=== PATIENT | female | born 1975 | race Caucasian/White ===

== ENCOUNTER 2020-02-18 08:31 | Outpatient (CLI) | payer SELFPAY ==
--- NOTE | 2020-02-18 | DI.US_ITS ---
EXAM: US PELVIS CLINICAL HISTORY: PELVIC PAIN, ? OVARIAN TORSION OR ECTOPIC . TECHNIQUE: Transabdominal pelvic ultrasound was performed using standard protocol. COMPARISON: No exams were available for comparison FINDINGS: The uterus is normal in size. The endometrial stripe is within normal limits. There is no evidence of an intrauterine gestation. The ovaries were not visualized transabdominally. There is fluid seen in the abdomen and pelvis. There is avascular echogenic material in the left abdomen and pelvis. T he finding is suspicious for hemorrhage. IMPRESSION: 1. Transabdominal examination of the pelvis. 2. No evidence of an intrauterine gestation. 3. Avascular echogenic material seen in the left abdomen and pelvis suspicious for hemorrhage. Diffe rential considerations include hemorrhagic ovarian cyst, ovarian torsion or possible ectopic pregnanc y. Follow-up with beta HCG level is recommended. 4. The ovaries were not visualized transabdominally. 5. The findings were discussed with the patient's primary care provider Haleigh Wu on the date o f the examination. DATA REPOSITORY:
[2020-02-18 09:52] LABS: HCT 30.8 % (36.0-46.0); HGB 10.4 g/dL (12.0-15.5); Mean Corp. HGB Concentration 33.8 g/dL (32.0-36.0); Mean Corpuscular Hemoglobin 29.1 pg (27.0-33.0); Mean Corpuscular Volume 86.3 fL (80-95); Mean Platelet Volume 10.8 fL (8.0-11.0); Platelet Count 245 x1000/uL (130-400); RBC 3.57 m/cumm (4.00-5.20); RBC Distribution Width 12.5 % (11.7-14.6); White Blood Cell Count 14.85 k/cumm (4.4-10.8)
[2020-02-18 09:58] LABS: HCG Qual (Serum) Negative
[2020-02-18 10:09] LABS: ALT 21 U/L (14-59); AST 16 U/L (15-37); Albumin 3.5 g/dL (3.4-5.0); Alkaline Phosphatase 41 U/L (46-116); Anion Gap 11.9 mmol/L (3-11); BUN 22 mg/dL (7-18); Bilirubin, Total 1.3 mg/dL (0.2-1.0); CO2 25.1 mmol/L (21.0-32.0); CREATININE 1.46 mg/dL (0.55-1.02); Calcium 8.6 mg/dL (8.5-10.1); Chloride 102 mmol/L (98-107); Estimated GFR 38.92 (mL/min/1.73m2); Glucose 181 mg/dL (74-106); Potassium 3.5 mmol/L (3.5-5.1); Sodium 139 mmol/L (136-145); Total Protein 6.9 g/dL (6.4-8.2)
[2020-02-18 10:10] LABS: HCG Quant, Pregnancy < 1 mIU/mL (1-3)
== END 2020-02-18 08:51 ==
PROVIDERS: PCP Naturopath; Visit Provider Naturopath
DX: R10.2 Pelvic and perineal pain (principal); R93.89 Abnormal findings on diagnostic imaging of other specified body structures
CPT/HCPCS: 36415; 80053; 85027; 76856; 84702; 84703

== ENCOUNTER 2020-02-18 11:04 | Inpatient (IN) | payer SELFPAY ==
[2020-02-18] VITALS (88 sets, daily range): BP systolic 101–135; BP diastolic 57–70; PULSE 63–86; RESP 13–22; TEMP 36.3–39.9; O2SAT 94–99
--- NOTE | 2020-02-18 | DI.CT_ITS ---
EXAM: CT ABDOMEN PELVIS CTA CLINICAL HISTORY: LARGE RETROPERITONEAL HEMATOMA. TECHNIQUE: Imaging Protocol: Axial CT angiography was performed with multislice acquisition and mu ltiplanar and/or 3D reconstructions. CONTRAST MATERIAL: Intravenous: Omnipaque 350 Contrast volume:70 mL Oral: No COMPARISON: US US PELVIS from 02/18/2020 FINDINGS: Vascular Structures: Celiac [place]/SMA: No evidence of stenosis. Renal Arteries: No evidence of stenosis. There is a single renal artery perfusing each kidney. Aorta: No aneurysm. No dissection. Pelvis: Iliac Arteries: No evidence of stenosis or dissection. Common Femoral Arteries: No evidence of stenosis. Soft Tissues: Lung bases:Normal. Liver: Normal density. No measurable mass. Gallbladder and biliary tract: Cholelithiasis. No biliary ductal dilatation. Pancreas: Normal density, no abnormal calcifications or inflammatory process. Spleen: Normal. Kidneys: The right kidney is unremarkable. There is delayed enhancement of the left kidney with dila tation of the left renal collecting system into the pelvis. No nephrolithiasis. No masses seen. Adrenal glands: No masses seen. Bladder: There is a Easton catheter in place. Air is seen within the urinary bladder, likely secondar y to introduction of the Easton catheter. Bowel: No obstruction or bowel wall thickening. No evidence of acute appendicitis. Peritoneal cavity: There is a large left retroperitoneal hematoma beginning below the level of the re nal arteries extending into the pelvis. No active extravasation is noted. It displaces the sigmoid colon, uterus and urinary bladder to the right. It is superficial to the external iliac vessels. It causes obstruction of the distal left ureter near the ureterovesical junction. There is moderate di latation of the left renal collecting system and delayed enhancement of the left kidney. In addition , there is a small amount of fluid in the cul-de-sac. There is a small amount of pneumoperitoneum in addition to subcutaneous air in the anterior abdominal wall, likely secondary to the patient's surge ry performed today prior to the CT scan. Bones: No acute fracture is identified. Lymph nodes: Within normal limits. Reproductive organs: Unremarkable. Soft tissues: There are bilateral inguinal hernias containing fluid. IMPRESSION: 1. Large retroperitoneal mass on the left suspicious for a hematoma. No evidence of active extravasa tion. 2. The hematoma obstructs the distal left ureter causing moderate hydronephrosis and delayed enhancem ent of the left kidney. 3. There is displacement of pelvic structures to the right. 4. There is a small amount of free fluid in the cul-de-sac and fluid-containing bilateral inguinal he rnias. 5. Small amount of pneumoperitoneum likely secondary to the patient's surgery today. 6. Cholelithiasis. No biliary ductal dilatation. 7. No evidence of acute arterial injury. 8. These findings were discussed with the primary care physician on the date of the examination. RADIATION DOSE DELIVERED: 1,514mGy.cm Total DLP DATA REPOSITORY: All CT scans at this facility are submitted to the National Radiology Data Registry (NRDR) Dose Index Registry (DIR) with the [employer] (ACR). RADIATION OPTIMIZATION: All CT scans at this facility use at least one of these dose optimization te chniques: automated exposure control; mA and/or kV adjustment per patient size (includes targeted exa ms where dose is matched to clinical indication); or iterative reconstruction.
--- NOTE | 2020-02-18 11:10 | W.ED.GENAD ---
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 Date/Time: 02/18/20 13:54 Admit Provider: Mandie Saldana Attending Provider: Rachell Shaikh Primary Care Provider: Haleigh Wu ED Provider: Bir Honeycutt Discharge Instructions Activity:: Activity as Tolerated Diet:: NPO Discharge Orders Discharge Orders: Discharge Order (Routine); Ordered 02/18/20 Ordered By: Alxesandra Leonard Discharge Data Discharge Date/Time-TO BE ENTERED AT DEPARTURE: 02/18/20 12:00 Medical Decision Making Samia Patino is a 44-year-old woman without reported history of major medical problems who presented to the emergency department with generalized abdominal pain after having an outpatient ultrasound here at [facility] showing significant amount of blood in the pelvis. On exam patient appears fatigued but nontoxic, does not appear in distress. She is alert and oriented. Generalized abdominal tenderness to palpation, positive rebound, positive guarding. Labs performed this morning show beta quant less than 1, hemoglobin 10. Concern for hemorrhage secondary to ruptured cyst versus other. Gynecology was notified by radiology and Dr. Shaikh was at bedside with patient when she was brought to the emergency department. Plan for patient to go emergently to the OR. Will place IVx2, repeat H&H, send type and screen as labs sent as outpatient this morning. Patient requesting no blood if possible, will give IV fluids at this time and hold blood products. Patient's vital signs remained within normal, systolic blood pressure 106. Pt admitted and left for OR, no change in symptoms, no further incident. Clinical Impression: pelvic hemorrhage Disposition: [facility] in Medical Records Medical records reviewed: Yes I reviewed the patient's medical records. Lab Data Lab results reviewed: Yes I reviewed the patient's lab results. HPI General Mode of arrival: wheelchair. Date/Time Provider Initiated Documentation: 02/18/20 11:06. Limitations to Documentation: no limitations. Information obtained by: patient, RN notes reviewed and old records reviewed. HPI Narrative: Samia Patino is a 44 y/o woman without reported history of major medical problems presenting to the emergency department with abnormal outpatient ultrasound. Patient reports that yesterday she developed sudden left lower quadrant pain, had several episodes of vomiting. Patient reports that pain is now generalized to her abdomen. She reports feeling somewhat fatigued. Patient had ultrasound ordered as an outpatient for pain this morning as well as labs. I was called from radiology by Dr. Philip, who noted that patient had a significant amount of blood on her ultrasound, uterus empty, bilateral adnexa not well visualized. Patient taken emergently from radiology to the emergency department. Patient denies any other pain, fever, cough, shortness of breath, current nausea/vomiting, rash, numbness, localized weakness. Patient reports that she was previously in her usual state of health. No trauma. Related Data Home Medications Medication Instructions Recorded Confirmed Unknown [No Known Home Meds] 02/18/20 02/18/20 Allergies Allergy/AdvReac Type Severity Reaction Status Date / Time No Known Allergies Allergy Unverified 02/18/20 11:13 Review of Systems Narrative: Constitutional: denies fevers Eyes: denies eye pain ENT: denies ear pain, dental pain, sore throat Cardiovascular: denies chest pain Respiratory: denies SOB, cough GI: reports abdominal pain, vomiting, denies diarrhea : denies flank pain MSK: denies back pain, neck pain, arthralgias, myalgias Skin: denies rash Neuro: denies headaches, numbness, weakness PFS Medical History Anemia (Chronic) Elevated serum creatinine (Acute) Hemoperitoneum (Acute) Social History Smoking/Tobacco Use Status: Never Alcohol Intake: never Substance use type: does not use Household members: family Housing: house Number of Children: 9 History History Para Hx # Term Pregnancies 10 Multiple births Hx # Pregnancies Ectopic pregnancies AB induced Hx Number of Living Children 9 AB spontaneous 3 Exam Narrative Exam Narrative: Constitutional: pale, [id number], pleasant, conversing normally HENT: head atraumatic/normocephalic/normal inspection, mucous membranes moist Eyes: conjunctiva normal, sclera normal, pupils 3mm b/l Neck: no stridor, normal ROM, trachea midline Chest: normal inspection Resp: normal work of breathing, LCTAB Cardio: normal rate, normal rhythm, no murmur appreciated GI: abdomen soft, diffusely tender, + rebound, + guarding, non-distended Skin: warm, dry, normal color, no rash Neuro: alert, not altered, grossly non-focal, normal tone Ext: no edema Psych: normal mood, normal affect, normal behavior Critical Care Time Critical Care Time Total Critical Care Time: 35 Attestation: I have spent 35 minute of critical care time with this critically ill patient, including frequent reassessments and discussions with consultants.
[2020-02-18] MEDS: Normal Saline 1,000 ML 1000 ML IV (11:20)
[2020-02-18] MEDS: Normal Saline Flush 10 ML SYR IVP (11:24)
--- NOTE | 2020-02-18 11:43 | W.PM.HP.N ---
Date of service: 02/18/20 Time of Service: 11:43 Assessment and Plan Assessment and plan (1) Hemoperitoneum: Status: Acute Assessment and plan: Patient presented to the emergency department with onset of left lower quadrant pain. Ultrasound confirmed hemoperitoneum with fluid in the left paracolic gutter. This is highly suspicious for hemoperitoneum. Starting hemoglobin is 10. Repeat is pending. She will be taken the operating room emergently for diagnostic possible operative laparoscopy for removal and control of pelvic hemorrhage. Risks benefits and alternatives of procedure were explained to the patient fluting risk of infection, bleeding, injury to surrounding organs, risk of anesthesia, thromboembolic issues, . Full informed consent was obtained. She would accept blood if needed. (2) Anemia: Status: Chronic (3) Elevated serum creatinine: Status: Acute History of Present Illness History of Present Illness Chief Complaint: Acute abdominal pain, pelvic hemorhage Consults Consult date: 02/18/20 Requesting physician: Bri Honeycutt Review of Systems Narrative: Patient presented to the emergency department with acute onset of left lower quadrant pain. She states that over the past 24 hours she is feeling somewhat poorly and having fatigue. Her last normal period was in October with some subsequent spotting. She denies heavy vaginal bleeding. She denies concern of at this point. Her appetite yesterday was somewhat poor. She has no fevers or chills. She denies cough or shortness of breath. She states that she has been drinking plenty of fluids though her urine has been concentrated. Constitutional Constitutional: Reports as per HPI Cardiovascular Cardiovascular: Denies chest pain at rest, Denies chest pain with activity, Denies syncope and Denies dyspnea Comments: Dizziness with ambulation Respiratory Respiratory: Reports system reviewed and no additional complaints, except as documented and Denies dyspnea Gastrointestinal Gastrointestinal: Reports system reviewed and no additional complaints, except as documented Genitourinary Genitourinary: Reports abnormal menses and Reports abnormal vaginal bleeding Comments: She is 5 months and currently breast-feeding Musculoskeletal Musculoskeletal: Reports system reviewed and no additional complaints, except as documented Neurologic Neurologic: Reports system reviewed and no additional complaints, except as documented and Denies syncope Psychiatric Psychiatric: Reports system reviewed and no additional complaints, except as documented Hematologic/Lymphatic Hematologic/Lymphatic: Reports system reviewed and no additional complaints, except as documented [facility] Social History Smoking/Tobacco Use Status: Never Alcohol Intake: never Substance use type: does not use Female Reproductive History Menstrual Duration of menses: 3-5 days control method: none History History Para Hx # Term Pregnancies 10 Multiple births Hx # Pregnancies Ectopic pregnancies AB induced Hx Number of Living Children 9 AB spontaneous 3 Meds Home Medications and Allergies Home Medications Medication Instructions Recorded Confirmed Type Unknown [No Known Home Meds] 02/18/20 02/18/20 History Allergies Allergy/AdvReac Type Severity Reaction Status Date / Time No Known Allergies Allergy Unverified 02/18/20 11:13 Exam Narrative Exam Narrative: Patient was seen and examined in the emergency department today after having pelvic ultrasound performed showing a left paracolic gutter full of fluid consistent with hemorrhage. Uterus identified and normal. Difficulty in visualizing either ovary. Quantitative hCG less than 1 Const General: cooperative, well groomed, ill appearing and other (Pale) Nutritional Appearance: average body habitus Orientation: alert and oriented x3 HENMT Head: normal to inspection Eyes General: appearance normal, both eyes and all related structures Resp Effort & Inspection: normal respiratory effort and no stridor Auscultation: clear to auscultation bilaterally, no rales and no rhonchi Cardio Jugular venous pressure: no JVD Palpation: normal PMI Rhythm: regular rhythm and abnormal rhythm Heart Sounds: S1 normal, S2 normal and no murmurs GI Palpation: not firm, guarding and tender Auscultation: normal bowel sounds Skin General skin exam: no rashes or lesions noted and pallor Neuro General: patient alert, patient awake and patient oriented x3 Results Labs Result diagrams: 02/18/20 11:10 Labs: Laboratory Results - last 24 hr 02/18/20 11:10 Hgb 11.0 L Hct 33.0 L Last Vital Signs Temp 98.8 F 02/18/20 11:39 Pulse 74 02/18/20 11:39 Resp 16 02/18/20 11:39 BP 114/67 02/18/20 11:39 Pulse Ox 96 02/18/20 11:39 COVID-19 Screening In the past 14 days, have you traveled outside of [place]?: NO
[2020-02-18] MEDS: Lactated Ringers 1,000 ML 30 ML IV ×4 (11:59→14:12)
[2020-02-18 13:56] LABS: HCT 27.5 % (36.0-46.0); HGB 9.1 g/dL (12.0-15.5); Mean Corp. HGB Concentration 33.1 g/dL (32.0-36.0); Mean Corpuscular Hemoglobin 29.3 pg (27.0-33.0); Mean Corpuscular Volume 88.4 fL (80-95); Mean Platelet Volume 10.8 fL (8.0-11.0); Platelet Count 187 x1000/uL (130-400); RBC 3.11 m/cumm (4.00-5.20); RBC Distribution Width 12.5 % (11.7-14.6); White Blood Cell Count 14.55 k/cumm (4.4-10.8)
[2020-02-18] MEDS: ACETAMINOPHEN 1,000 MG/100 ML BTL 100 MG (13:56)
[2020-02-18 14:00] LABS: Anion Gap 9.3 mmol/L (3-11); BUN 23 mg/dL (7-18); CO2 26.7 mmol/L (21.0-32.0); CREATININE 1.47 mg/dL (0.55-1.02); Calcium 8.2 mg/dL (8.5-10.1); Chloride 103 mmol/L (98-107); Estimated GFR 38.61 (mL/min/1.73m2); Glucose 163 mg/dL (74-106); Sodium 139 mmol/L (136-145)
[2020-02-18 14:11] LABS: INR 1.1 (0.9-1.1); PTT Activated 19.4 sec (21.0-31.4)
[2020-02-18] MEDS: Lactated Ringers 1,000 ML 150 ML IV (14:12)
[2020-02-18] MEDS: Omnipaque 350 MG/ML 100 ML BTL IJ (14:54)
--- NOTE | 2020-02-18 14:54 | ROE_ITS ---
Date of service: 02/18/20 Operative Note Operative Note DATE OF PROCEDURE: 02/18/20 PRE-OP DIAGNOSIS: Hemo-Peritoneum, Suspect pelvic hemorrhage POST-OP DIAGNOSIS: other (Mesenteric hematoma) PROCEDURE: Diagnostic Laparosopcy SURGEON: Rachell Shaikh AUTOMOTIVE PARTS COORDINATOR: Mandie Saldana ANESTHESIA: GETA ESTIMATED BLOOD LOSS: 5 COMPLICATIONS: None Patient was transported to: PACU Patient's condition: other Indications: Patient was seen in the emergency department today with acute onset of left lower quadrant pain. Ultrasound reveals complex fluid in the pelvis extending to the left pericolic gutter. This was highly suspicious for hemorrhagic ovarian cyst. Preoperative hemoglobin initially 10 with significant pallor. Findings: Large, encapsulated hematoma of the mesentery extending to the juncture of the transverse colon with extension to the anterior abdominal wall. Normal-appearing uterus. Normal-appearing ovaries bilaterally. Scant pre-free pelvic fluid. Normal-appearing liver edge. No evidence of splenic hematoma. Procedure Description: Patient is a 44-year-old female approximately 14 para 10 with 10 previous vaginal deliveries, 1 of which was a stillbirth. Remainder of pregnancies were miscarriage. She presented to the emergency department today with acute onset of left lower quadrant pain after approximately 24 hours of feeling somewhat poorly. She has had an ultrasound scheduled as an outpatient with outpatient laboratory studies and due to the findings of her ultrasound was transferred to the emergency department. I had seen her there and evaluated her which was an examination highly suspicious for hemomoperitoneum with guarding and rebound, and the above-mentioned ultrasound findings. The risks benefits and alternatives of surgical exploration were explained to the patient including risk of infection, bleeding, injury to surrounding organs, need for exploratory laparotomy. Full informed consent was obtained. She was taken the operating suite with 2 IVs running. She is placed in dorsal supine position and endotracheal intubation performed with administration of general anesthesia with ease. She was then placed in the modified dorsal lithotomy position and exam under anesthesia revealed a uterus that is midline and fullness throughout the pelvis. Easton catheter there was inserted for continuous bladder drainage. Speculum was placed in the posterior vaginal vault and single-tooth tenaculum identified the cervix and grasped the cervix. A lka uterine manipulator was placed within for uterine manipulation. Attention was then turned to the abdomen where quarter percent Marcaine with epinephrine was used to infiltrate the infraumbilical space. A 10 mm incision was made horizontally and varies needle placed directly into the abdomen with a maximum pressure of 15 mmHg pneumoperitoneum was created. With a blade list 1012 sleeve and trocar a millimeter laparoscope was placed under direct visualization. At this point there was noted to be a scant amount of pelvic fluid which was bloody in nature though no active bleeding. Also found was a extremely large well-contained encapsulated thrombus that extended in the colon mesentery out to the anterior abdominal wall. At this point due to the fact that this did not appear to be gynecologic in nature general surgery intraoperative consultation was performed. Dr. Saldana present in the room for exploration. Findings will be dictated in her portion of the operative note. At the completion of exploration.. Pneumoperitoneum was released and sleeves and trochars were removed. The infraumbilical fascial incision was closed with 0 Vicryl suture. Skin edge reapproximated with 4-0 Monocryl suture and Steri- Strips were placed. The [place] uterine manipulator was removed. Patient was returned to the dorsal supine position and awoke from anesthesia with ease. She was taken recovery room with a Easton catheter draining clear yellow urine and reasonably stable condition however further evaluation is warranted due to the unknown etiology of this massive mesenteric hematoma. Complications of her procedure are none apparent Findings were discussed with the patient's and plan of care coordination and with general surgery.
[2020-02-18] MEDS: Normal Saline - Diluent 50 ML VIAL IV (14:55)
[2020-02-18] MEDS: diphenhydrAMINE 25 MG CAP PO (15:30)
--- NOTE | 2020-02-18 16:56 | ROE_ITS ---
Date of service: 02/18/20 Time of Service: 16:56 Operative Note Operative Note DATE OF PROCEDURE: 02/18/20 POST-OP DIAGNOSIS: other (Mesenteric hematoma) SURGEON: Mandie Saldana PULP MILL SUPERVISOR: Mandie Saldana ANESTHESIA: GETA ESTIMATED BLOOD LOSS: 5 Patient was transported to: PACU Patient's condition: other Procedure Description: I was asked by Dr. Shaikh to scrub in to the diagnostic laparoscopy for what was thought to originally have been a left ectopic or ovarian hemorrhage. On inspection of the abdomen, she has a large mesenteric hematoma that mostly involves mesentery of the sigmoid colon and mesentery of the distal transverse colon. it is not pulsatile. It does not appear to be expanding. It does involve the musculature of the lower left flank and abdominal wall and appear to involve the serratus and external oblique. She does have bilateral inguinal hernias incidentally. there is no free flowing blood within the abdomen. The Hematoma does not extend down into the pelvis or into the rectum/rectal mesentery. The colon appears pink and healthy. The small bowel does not appear to be involved. The spleen is visualized there is no hematoma. The stomach is visualized and is grossly normal. Liver is visualized and is grossly normal. The uterus and both ovaries are visualized is grossly normal. It does appear to involve the left fallopian tube- But this appears to be more dependent and edematous, rather than a acute hemorrhage or ectopic. There is no signs of any active bleeding. There is a scant amount of free fluid in the pelvis and above the liver- this is removed, approx 100cc. All the bowel appears pink healthy and viable. There is no definitive etiology for this hemorrhage. She has been hemodynamically stable throughout the case. Her urine is clear. She had a preop pelvic ultrasound but not a CAT scan. The case is then ended and closed. Repeat laboratory work is pending at this time. Patient will go for a CT of the abdomen pelvis and further recommendations to follow based on findings of this.
--- NOTE | 2020-02-18 18:13 | W.PM.DS.N ---
Date of service: 02/18/20 Time of Service: 18:14 DS: Diagnosis Discharge Diagnosis (1) Hemoperitoneum: Status: Acute (2) Anemia: Status: Chronic (3) Elevated serum creatinine: Status: Acute Discharge Plan Disposition Patient Disposition: [facility] Condition: Serious Discharge Details Chief Complaint: PALLET SORTER Reason For Visit: intra-abdominal hematoma Admit Date/Time: 02/18/20 13:54 Admit Provider: Mandie Saldana Attending Provider: Rachell Shaikh Primary Care Provider: Haleigh Wu ED Provider: Bri Honeycutt Hospital Course Hospital Course: Patient presented to the emergency department with acute onset of left lower quadrant pain. She states that over the past 24 hours she is feeling somewhat poorly and having fatigue. Her last normal period was in October with some subsequent spotting. She denies heavy vaginal bleeding. She denies concern of at this point. Her appetite yesterday was somewhat poor. She has no fevers or chills. She denies cough or shortness of breath. She states that she has been drinking plenty of fluids though her urine has been concentrated. Pelvic US was done which showed blood in the pelvis. Patient was taken to the OR for exploratory Laparoscopy by Dr. Shaikh (DEVELOPMENT COACH). Once in the belly she was noted to have a mesenteric hematoma as well as a hematoma along the left flank which tract down to the fallopian tube. General Surgery was consulted intra-operatively. Liver, spleen were noted to be normal. Sigmoid colon and descending colon were pink and viable. No signs of necrosis. Surgery was terminated and the patient was woken up and CTA was done which showed a large hematoma as well as opstruction of the left ureter. Also noted was a large gonadal vessel. No aneurysems were identified. Patient denies trauma. When I saw her in the ICU she did tell me that she has not felt well for a few weeks and tought she was having some kidney issues. She has been taking some herbal teas to help her kidneys. She doesn't know the name of the tea. Patient was given 2 units of blood and IV fluids Urology was consulted for possible stent placement. I called [facility] as I was concerned about potentailly missing something as I have no explanation for this hematoma. After discussing the case with Dr. Malave of Trauma/ Acute Care surgery he accepted the patient in transfer. Vital on discharge are stable. Patient did have one spike in temperature after getting the blood. Hospital medications: Morphine for pain, tylenol, Zofran. Patient was given one dose of Benadryl prior to getting the blood transfusion. Patient does have a 5 months old baby and so we did provide her with a pump so she could pump. Home Meds and New Rx's Prescriptions: No Action No Known Home Meds RF: 0 Discharge Instructions Activity:: Activity as Tolerated Diet:: NPO Discharge Orders Discharge Orders: Discharge Order (Routine); Ordered 02/18/20 Ordered By: Alexsandra Leonard DS: Summary Status at Discharge Functional status at discharge: independent ambulation Overall status at discharge: patient is not back to baseline Mental Status: mental status grossly normal Speech and Movement: speech and movement normal Mood: congruent mood Affect: normal affect Exam Const General: cooperative, comfortable and no acute distress Orientation: alert and oriented x3 HENMT Head: normocephalic and atraumatic Resp Effort & Inspection: normal respiratory effort Auscultation: clear to auscultation bilaterally Cardio Rate: regular rate Rhythm: regular rhythm Heart Sounds: no gallops, no murmurs and no rubs GI Inspection: incision (c/d/i) Palpation: soft and tender in the LLQ (no rebound) Psych Mental Status: mental status grossly normal Speech and Movement: speech and movement normal Mood: congruent mood Affect: normal affect DS: Data Vitals/I&O Vitals and I&O: Vital Signs Temperature 98.1 F 02/18/20 16:56 Temperature Source Temporal Artery Scan 02/18/20 16:55 Pulse 72 02/18/20 16:45 Pulse 70 02/18/20 16:50 Respiratory Rate 13 02/18/20 14:05 Respiratory Effort Non-Labored 02/18/20 11:09 Blood Pressure 123/67 02/18/20 16:45 Blood Pressure Mean 81 02/18/20 16:45 Blood Pressure Position Sitting 02/18/20 11:09 Pulse Oximetry 96 02/18/20 16:50 Oxygen Delivery Method Room Air 02/18/20 16:56 Oxygen Flow Rate 0 02/18/20 16:56 Pain Level 0 02/18/20 14:05 Intake & Output 02/17/20 02/18/20 02/18/20 23:59 11:59 23:59 Intake Total 600 / 7376.017 5079.167 / 1842.167 Output Total 100 / 100 Balance 600 / 5635.946 5007.167 / 1742.167 Weight 154 lb 8.705 oz Intake: IV 600 / 8283.823 8544.167 / 1842.167 Output: Urine 100 / 100 Other: Urine Color Yellow Urine Appearance Clear Data Completed and Pending Labs on day of discharge: Labs from last 24 hours 02/18/20 02/18/20 02/18/20 23:00 18:00 13:47 WBC RBC Hgb Pending Cancelled Hct Pending Cancelled MCV MCH MCHC RDW Plt Count MPV PT 11.0 INR 1.1 APTT 19.4 L Sodium Potassium Chloride Carbon Dioxide Anion Gap BUN Creatinine Estimated GFR/1.73 m2 Glucose Calcium COVID-19 PCR Nasopharyn COVID-19 PCR Ref Test Perform Site Patient ABO/Rh Antibody Screen Crossmatch 02/18/20 02/18/20 02/18/20 13:47 13:47 11:30 WBC 14.55 H RBC 3.11 L Hgb 9.1 L Hct 27.5 L MCV 88.4 MCH 29.3 MCHC 33.1 RDW 12.5 Plt Count 187 MPV 10.8 PT INR APTT Sodium 139 Potassium 4.0 Chloride 103 Carbon Dioxide 26.7 Anion Gap 9.3 BUN 23 H Creatinine 1.47 H Estimated GFR/1.73 m2 38.61 Glucose 163 H Calcium 8.2 L COVID-19 PCR Pending Nasopharyn COVID-19 PCR Pending Ref Test Perform Site Pending Patient ABO/Rh Antibody Screen Crossmatch 02/18/20 02/18/20 11:10 11:10 WBC RBC Hgb 11.0 L Hct 33.0 L MCV MCH MCHC RDW Plt Count MPV PT INR APTT Sodium Potassium Chloride Carbon Dioxide Anion Gap BUN Creatinine Estimated GFR/1.73 m2 Glucose Calcium COVID-19 PCR Nasopharyn COVID-19 PCR Ref Test Perform Site Patient ABO/Rh A Positive Antibody Screen Negative Crossmatch See Detail [facility] Medical History (Updated 02/18/20 @ 11:50 by Rachell Shaikh DO) Anemia (Chronic) Elevated serum creatinine (Acute) Hemoperitoneum (Acute) Social History (Updated 02/18/20 @ 18:15 by Alexsandra Leonard MD) Smoking/Tobacco Use Status: Never Alcohol Intake: never Substance use type: does not use Household members: family Housing: house Number of Children: 9 Female Reproductive History Menstrual Duration of menses: 3-5 days control method: none History History Para Hx # Term Pregnancies 10 Multiple births Hx # Pregnancies Ectopic pregnancies AB induced Hx Number of Living Children 9 AB spontaneous 3
--- NOTE | 2020-02-18 19:15 | NUR.NOTE ---
Nursing Note: pt has no home phone - can be reached by calling neighbor leda at [phone] or pj leroy [phone]
[2020-02-18 21:57] LABS: COVID-19 RT-PCR UVMMC Result Negative (Negative)
--- NOTE | 2020-02-19 11:47 | NUR.NOTE ---
Brady(Please see previous visit notes for additional information.) Encounter Date/Time: 02/18/2020 @ [id number] IDENTIFIERS Mother: Samia Patino : 1975 Baby?s name: Terry Patino : Father/partner: Demetrius Patino SITUATION Concerns: Referral from ICU Mother requests to express milk and provide to infant s/p surgery for pelvic hemorrhage anemia MATERNAL OR PROVIDER CONCERNS Mother desires to maintain breastmilk supply and to express milk to provide to infant ABM #5 indications for referral to services -Maternal request/anxiety POTENTIAL DIAGNOSTIC CODES common codes Maternal: Z39.1 Encounter of care of lactating mother -Mom restates availability of [facility] Services post-discharge and will call if she desires support. SUMMARY Hernandez findings related to standard IBCLC received a PC from Lara in ICU requesting assistance /c mother who desire to express milk and to determine safety of maternal medications re; mother?s milk. IBCLC referred RN to Marielle Wilkerson and rn telemetry. Lara confirmed rn telemetry use a home telegraphic typewriter installer; mother accepted referral with [facility] to confirm medications safety. Lara FOLEY and Alexsandra MOYER provided a list of maternal medications. IBCLC reviewed list of medications and their references listed below. IBCLC phoned [facility] and spoke /c Zainab MOYER; Zainab MOYER spoke /c Alexsandra MOYER and confirmed medication list. Zainab MOYER advised parents monitor for sleepiness noting morphine administration. Order written. Note Dexametetomadine reference indicates little excretion after 6 hours from administration and Lactmed reference advises, ?When a combination of anesthetic agents is used for a procedure, follow the recommendation for the most problematic medication used during the procedure.? Dexametetomadine was administered at 1117 and milk expression was initiated @ 1715. Parents were advised to monitor for sleepiness. IBCLC Interviewed mother and assisted /c application of the breast pump and with pumping. Parents do not have electricity. Mother has experience with using a hand pump. Mother is a para 9 ranging 5.5 months to 21 years. FOB is sitting beside mother and is supportive. IBCLC advised about flange size potential changes with fluid shifts, noting that [facility] also uses Medela Symphonies. IBCLC counseled parents that blood loss and illness can lead to diminished breastmilk supply, advising that supporting maternal health and maintaining frequent milk expression as feasible are best interventions to support mother?s feeding goals. While pumping mother is receiving blood products. IBCLC assisted /c getting food for FOB and hanging blood. Dr. Brink visited parents and reviewed plans for mother to have a cystoscopy. Alexsandra MOYER visited and advised parents of plan to transfer mother to [facility]. IBCLC reviewed resources at [facility] and breast milk storage guidelines, providing ice for transport to home. IBCLC reviewed Dr. Cheek?s order and advice to observe for sleepiness due to morphine. FOB states plan to observe and call provider prn. Infant assessment deferred. Infant not present. Per parents Terry is 5 ? months old and parents are following infant care through their home telegraphic typewriter installer. Feeding hx is exclusively breastfed. Feeding assessment deferred. Maternal assessment deferred to ICU and medical and surgical providers. Mother is pale and her cheeks are a little pink by the end of the blood transfusion. Mother?s breasts are symmetrical, small is size, soft, venation WNL no erythema. Breast assessment and palpation limited to assistance /c milk expression. Mother?s nipples have a medium diameter and medium shaft length, skin intact without trauma or papillary edema. Mother states breast and nipple comfort and expresses concern that her breasts are softer than anticipated for the interval of time since last feeding. Parents state comfort /c information. MATERNAL Breast and nipple exam -Maternal medications Palomares (2019). Palomares?s Medications and Mother?s Milk. [employer]: [place]. Lactmed references are retrieved 02/19/2020. 1349 Acetaminophen 1000 mg/100 ml IV x 1 L1 (ibid, p3-4). 1555 - Acetaminophen 1000 mg/100 ml IV 400 ml/hr L1 (ibid, p3-4). ?Acetaminophen is a good choice for analgesia and fever reduction in nursingmothers. Amounts in milk are much less than doses usually given to infants. Advers effects in brestfed infant appear to be rare.? Lactmed - https://www.ncbi.nlm.nih.gov/books/DDI505829/#:~:text=Summary%20of%20Use%20during%20Lactation,infants%20appear%20to%20be%20rare. 1255 - Bupivacaine 0.25%/epinephrine bitart Marcaine/epi 0.25% - L2 (ibid, p88-89). ?Because of the low levels of bupivacaine in breastmilk, and it is not orally absorbed, amounts received by the are small and it has not caused any adverse effects in breastfed infants.? Lactmed - https://www.ncbi.nlm.nih.gov/books/XCJ424495/ 1117 Dexamethosone 4 mg L3 (ibid, 206-207). Lactmed - https://www.ncbi.nlm.nih.gov/books/FMA027713/ 1117 Dexmetetomadine 80 mcg L4, (ibid, p209) T1/2 = 2h ?Limited data indicate that very small amounts of (med) are excreted into breastmilk for 6 hours after the end of an infusion? The drug is absent from breastmilk by 24 hours after the end of the infusion. (Med) would not be expected to cause adverse effects in breastfed infants or neonates.? Lactmed - https://www.ncbi.nlm.nih.gov/books/DJA451759/ 1530 Diphenhydramine 25 mg L2 (ibid, p223) ?Small occasional doses?would not be expected to cause any adverse effects in breastfed infants.? Lactmed - https://www.ncbi.nlm.nih.gov/books/SBS517698/ 1500 Iohexol 350/100 ml 70 ml L2 (ibid, p397) ?guidelines developed by several professional organizations state that need not be disrupted after a nursing mother receives iodine-containing contrast medium.? Lactmed https://www.ncbi.nlm.nih.gov/books/BGY343781/ 1117 Ketamine 50 mg L3 (ibid, p415) Palomares ??rapid acting general anesthetic agent with analgesia and anesthetic effects?No data are available on the transfer of ketamine into human milk. It has a short half-life of 2.5 hours but its redistribution half-life out of plasma (to muscle and tissues) is brief (10-15 min); thus milk levels are likely to be low.? (Palomares) ?Minimal data indicated that ketamine use in nursing mothers may not affect the breastfed infant or . Alternative agents are preferred.? Lactmed https://www.ncbi.nlm.nih.gov/books/XPS426569/ 1400 LR IV 1354 - Morphine 2 mg IV q1h, prn - L3 (ibid, p528) ?(IV) or oral doses of maternal morphine in the immediate period result in higher milk levels than with epidural morphine?[place]asley infants seem to be particularly sensitive to the effects of even small dosages of narcotic analgesics. Once the mother?s milk comes in, it is best to prove pain control with a nonnarcotic analgesic and limit maternal intake of morphine to 2-3 days at low dosage with close monitoring?If the baby shows signs of increased sleepiness (more than usual), difficulty , breathing difficulties or limpness a physician should be contact immediately.? Lactmed https://www.ncbi.nlm.nih.gov/books/ELP270435/ Normal saline flush 1354 - Ondansetron 4 mg IVP, q4h - L2 (ibid, p572) ?Little published information?frequently used for nausea after ? appears not to affect the onset of . No adverse effects have been reported and the drug has been used in infants. An alternative?may be preferred.? Lactmed https://www.ncbi.nlm.nih.gov/books/XBT775612/ 1220 - Phenylephrine 800 mcg - L3 (ibid, p606) ??drug is unlikely to reach the in large amounts. However IV or oral administration?might decrease milk production.) Lactmed - https://www.ncbi.nlm.nih.gov/books/KID918031/ 1117 - Propofol 200 mg L2 - (ibid, 635) Amounts of propofol in milk are very small and are note expected to be absorbed by the ?most recommend that can be resumed as soon as the mother has recovered sufficiently from general anesthesia to nurse and that discarding milk is unnecessary.? Lactmed https://www.ncbi.nlm.nih.gov/books/ONM257944/ 1117 Rocuronium 50 mg L3 (ibid, w463-079) advise wait a few hours, 2nd phase t ?= 7-40 min and 3rd phase t ? = 2-3h, very small bioavailability ?Because it is short acting, highly polar and poorly absorbed orally, it is not likely to reach the breastmilk in high concentration or to reach the bloodstream of the infant.? Lactmed - https://pubmed.ncbi.nlm.nih.gov/28364678/ 1116 Succinylcholine 100 mg L3 (ibid, g388-286) ?Because it is rapidly eliminated and poorly absorbed orally, it is not likely to reach the bloodstream of the or cause any adverse effects in breastfed infants.? Lactmed reference - https://www.ncbi.nlm.nih.gov/books/JLC822209/ 1303 Sugammadex 200 mg ?Because sugammadex is a large highly polar molecule with a MW of 2002 Da, the amount in milk is likely to be very low and oral absorption by the is unlikely. Sugammadex is acceptable to use during .? Lactmed reference -https://www.ncbi.nlm.nih.gov/books/IBA277039/ ?When a combination of anesthetic agents is used for a procedure, follow the recommendation for the most problematic medication used during the procedure.? Lactmed. Given that Dexmetetomadine 80 mcg L4, (ibid, p209) was administered at 1117 and references indicate little excretion at 6 hours after aministration advise milk expression after 1717. -Coping Fair - Confident mom balancing infant?s needs with self-care. Medical/Surgical issues impact maternal coping. -Breasts -Breast pain? No -Shape Normal convex, pendulous, symmetrical N Tubular, underdeveloped, N angle/space > 1 inch N asymmetrical, N extramammary tissue/hypermastia, N hypomastia, N axillary breast tissue -Size -small/medium -Venous pattern WNL Breast assessment Normal breast softer after feeding, Assessment Y or N N Lesions N scars, N engorged bilateral generalized edema /s fever and myalgia, N erythema, N [id number], N rash, N ecchymosis, N areolar edema, N nodules, N lump/mass, N plugged duct N s/s of mastitis/inflammation unilateral, febrile, myalgia (flu-like s/s) Predisposing factors to mastitis Y or N N Nipple trauma Y Decreased feeding frequency, duration or scheduled, Missed feedings Y Inefficient milk removal poor attachment, weak/uncoordinated suck, pumping, Y Rapid weaning Y Illness mother or baby N Oversupply N Pressure on the breast bra, car seatbelt N Partial blockage of milk duct - Nipple bleb, plugged duct Y Maternal stress/fatigue N Maternal malnutrition Interventions: Recommended frequent milk removal as feasible with ICU stay A IBCLC advised parents that milk supply may be impacted by blood loss and illness. To match parent goals of optimal supply advise milk expression ideally 8/24h and recognize milk expression efforts need to balance with maternal health needs. R Parents state comfort /c information. Concerns Potential insufficient milk supply r/t infrequent milk removal and maternal illness Increased risk for infection r/t maternal illness and infrequent/ineffective milk removal -Nipples -Size/diameter Medium (12-15 mm), -Protraction/shape/shaft length Normal: everted at rest, medium shaft length, -Shape after feeding Deferred infant not present Exam Y or N N Papillary edema N Generalized edema N Skin integrity impaired N Sensitivity N Purulent drainage N Rash/dermatitis N Coloration N Lesions N Hdez glands inflamed N Bleb D Parents requested services and continued support with pumping while at [facility]. A IBCLC advised parents that nipple/areola diameter may change with fluid shift, necessitating a larger flange size. IBCLC demonstrated flange sizes included with equipment. IBCLC demonstrated hand pump. IBCLC advised contact /c [facility] after transfer, providing contact info. R Info was included /c mother?s transfer information and FOB has a copy. PAIN assessment -Nipple sensation Normal Comfort with light touch States nipple comfort -Trauma none Optimal Nipple assessment WNL -Milk production mature milk -Milk Ejection Reflex (JENARO) Brisk -Mother?s estimate of milk supply inadequate, less than mother anticipated Marisa Diaz, RNC, IBCLC, BSN, MST [employer] [facility] and [facility] [address] [place] [address] [place] [id number] :
== END 2020-02-18 22:00 | disposition short-term general hospital (02) | DRG 356 ==
LOC: ER 11:54 → SUR 11:57 → ICU 15:11
PROVIDERS: Admitting Provider Surgery; Emergency Provider Student in an Organized Health Care Education/Training Program; PCP Naturopath; Visit Provider Obstetrics & Gynecology
PROC: 0WJG4ZZ Inspection of Peritoneal Cavity, Percutaneous Endoscopic Approach (ICD-10-PCS; CPT 49320; principal; 2020-02-18 14:30)
DX: S36.81XA Injury of peritoneum, initial encounter (principal); K66.1 Hemoperitoneum; Z11.59 Encounter for screening for other viral diseases; D64.9 Anemia, unspecified; R78.89 Finding of other specified substances, not normally found in blood; N13.5 Crossing vessel and stricture of ureter without hydronephrosis
CPT/HCPCS: 49320; 49322; 36415; 36430; 80048; 85027; 86850; 86900; 86901; 86920; 96360; 99223; 99291; NC; U0003; 74174; 85014; 85018; 85610; 85730; J0131; J1100; J2405; J2704; J3490; P9016